=== PATIENT | female | born 1965 | race Caucasian/White ===

== ENCOUNTER 2016-09-24 17:34 | Emergency (ER) | payer SELFPAY ==
[2016-09-24 18:52] LABS: BASOPHILS 0.6 % (0-2); EOSINOPHILS 0.9 % (0-7); HEMATOCRIT 40.3 % (36.0-48.0); HEMOGLOBIN 13.8 g/dL (12-16); IMMATURE GRANULOCYTES 0.8 % (0-5); LYMPHOCYTES 31.1 % (15-50); MCH 30.4 pg (26.0-34.0); MCHC 34.2 g/dL (31.0-37.0); MCV 88.8 fL (80.0-100.0); MEAN PLATELET VOLUME 8.6 fL (7.4-10.4); MONOCYTES 7.5 % (2-11); NEUTROPHILS 59.1 % (40-80); PLATELET COUNT 245 10x3/uL (130-400); RBC 4.54 10x6/uL (4.00-5.40); RDW 12.2 % (11.5-14.5); WBC 10.2 10x3/uL (4.8-10.8)
[2016-09-24 19:10] LABS: ALBUMIN 3.6 g/dL (3.4-5.0); ALKALINE PHOSPHATASE 72 U/L (46-116); ALT (SGPT) 30 U/L (10-68); BILIRUBIN - TOTAL 0.22 mg/dL (0.2-1.3); CALC OSMOLALITY 283 mosm/kg (275-300); CALCIUM 8.8 mg/dL (8.5-10.1); CHLORIDE - SERUM 105 mmol/L (98-107); CREATININE - SERUM 0.8 mg/dL (0.6-1.3); GLUCOSE 89 mg/dL (74-106); POTASSIUM - SERUM 4.1 mmol/L (3.5-5.1); SODIUM 142 mmol/L (136-145); UREA NITROGEN 19 mg/dL (7-18); eGFR NON AFRICAN AMERICAN 81 mL/min (90-120)
[2016-09-24 19:17] LABS: CHOLESTEROL, TOTAL 235 mg/dL (0-200); CKMB 0.7 U/L (0.0-3.6); CREATINE KINASE 63 UL (21-215); HDL CHOLESTEROL 39 mg/dL (32-96); LDL CHOLESTEROL 135 mg/dL (0-100); LDL-HDL RATIO 3.5 ratio (1.5-3.5); TRIGLYCERIDE 307 mg/dL (30-200); TROPONIN-I < 0.017 ng/mL (0.000-0.060)
[2016-09-24 19:25] LABS: AMYLASE - SERUM 31 U/L (25-115); LIPASE 183 U/L (73-393)
[2016-09-24 21:51] LABS: APPEARANCE HAZY (CLEAR); BILIRUBIN NEGATIVE (NEGATIVE); COLOR YELLOW (YELLOW); GLUCOSE NEGATIVE (NEGATIVE); KETONE NEGATIVE (NEGATIVE); LEUKOCYTE ESTERASE NEGATIVE (NEGATIVE); NITRITE POSITIVE (NEGATIVE); PROTEIN NEGATIVE (NEGATIVE); SPECIFIC GRAVITY 1.015 (1.005-1.020); UROBILINOGEN NORMAL (NORMAL)
[2016-09-24 21:53] LABS: BACTERIA MANY /hpf (NONE SEEN); RED CELLS - URINE 0-5 /hpf (0-5); WHITE CELLS - URINE 0-5 /hpf (0-5)
== END 2016-09-24 22:40 | disposition home or self-care (01) ==
LOC: D.ER 17:34
PROVIDERS: Family Medicine
DX: N39.0 Urinary tract infection, site not specified (principal); I10 Essential (primary) hypertension; F32.9 Major depressive disorder, single episode, unspecified; J45.909 Unspecified asthma, uncomplicated; F17.200 Nicotine dependence, unspecified, uncomplicated

== ENCOUNTER 2017-01-12 10:15 | Emergency (ER) | payer MEDICARE ==
[2017-01-12 12:38] LABS: ALBUMIN 3.4 g/dL (3.4-5.0); ALKALINE PHOSPHATASE 79 U/L (46-116); ALT (SGPT) 47 U/L (10-68); BILIRUBIN - TOTAL 0.14 mg/dL (0.2-1.3); CALC OSMOLALITY 283 mosm/kg (275-300); CALCIUM 9.1 mg/dL (8.5-10.1); CARBON DIOXIDE 26.1 mmol/L (21.0-32.0); CHLORIDE - SERUM 106 mmol/L (98-107); CREATININE - SERUM 0.8 mg/dL (0.6-1.3); GLUCOSE 159 mg/dL (74-106); POTASSIUM - SERUM 4.6 mmol/L (3.5-5.1); PROTEIN - SERUM 6.9 g/dL (6.4-8.2); SODIUM 141 mmol/L (136-145); UREA NITROGEN 12 mg/dL (7-18); eGFR NON AFRICAN AMERICAN 81 mL/min (90-120)
[2017-01-12 12:41] LABS: BASOPHILS 0.3 % (0-2); CREATINE KINASE 130 UL (21-215); EOSINOPHILS 1.1 % (0-7); HEMATOCRIT 41.7 % (36.0-48.0); HEMOGLOBIN 14.1 g/dL (12-16); IMMATURE GRANULOCYTES 0.5 % (0-5); LYMPHOCYTES 17.6 % (15-50); MCH 30.4 pg (26.0-34.0); MCHC 33.8 g/dL (31.0-37.0); MCV 89.9 fL (80.0-100.0); MEAN PLATELET VOLUME 8.9 fL (7.4-10.4); MONOCYTES 3.4 % (2-11); NEUTROPHILS 77.1 % (40-80); PLATELET COUNT 244 10x3/uL (130-400); RBC 4.64 10x6/uL (4.00-5.40); RDW 12.5 % (11.5-14.5); WBC 6.5 10x3/uL (4.8-10.8)
[2017-01-12 12:42] LABS: TROPONIN-I < 0.017 ng/mL (0.000-0.060)
[2017-01-12 13:31] LABS: APPEARANCE HAZY (CLEAR); BILIRUBIN NEGATIVE (NEGATIVE); COLOR YELLOW (YELLOW); GLUCOSE NEGATIVE (NEGATIVE); KETONE NEGATIVE (NEGATIVE); NITRITE NEGATIVE (NEGATIVE); PROTEIN NEGATIVE (NEGATIVE); SPECIFIC GRAVITY 1.015 (1.005-1.020); UROBILINOGEN NORMAL (NORMAL)
== END 2017-01-12 15:15 | disposition home or self-care (01) ==
LOC: D.ER 10:15
PROVIDERS: Nurse Practitioner Family
DX: R20.2 Paresthesia of skin (principal); M48.02 Spinal stenosis, cervical region; I10 Essential (primary) hypertension

== ENCOUNTER 2017-10-21 17:28 | Observation (INO) | payer MEDICARE ==
[~2017-10-21] VITALS: Ht 165.1 cm; Wt 157.7 kg
[2017-10-21] MEDS ORDERED: LISINOPRIL-HCTZ1 T11 PO (17:32)
[2017-10-21] MEDS ORDERED: ZOCOR10 MG PO (17:33)
[2017-10-21] MEDS ORDERED: CELEXA40 MG PO (17:33)
[2017-10-21] MEDS ORDERED: NEURONTIN 300300 MG PO (17:33)
[2017-10-21] MEDS ORDERED: HYDROCODONE-APA1 TAB PO (17:33)
[2017-10-21] MEDS ORDERED: ADDERALL 30 MG30 MG PO (17:34)
[2017-10-21] MEDS ORDERED: IBUPROFEN800 MG PO (17:34)
[2017-10-21 18:45] VITALS: BP 111/58
[2017-10-21 19:53] VITALS: BP 108/76
[2017-10-21 21:21] LABS: BASOPHILS 0.2 % (0-2); EOSINOPHILS 0.1 % (0-7); HEMATOCRIT 39.2 % (36.0-48.0); HEMOGLOBIN 13.6 g/dL (12-16); IMMATURE GRANULOCYTES 0.4 % (0-5); LYMPHOCYTES 8.8 % (15-50); MCH 30.6 pg (26.0-34.0); MCHC 34.7 g/dL (31.0-37.0); MCV 88.3 fL (80.0-100.0); MEAN PLATELET VOLUME 8.9 fL (7.4-10.4); MONOCYTES 2.3 % (2-11); NEUTROPHILS 88.2 % (40-80); PLATELET COUNT 260 10x3/uL (130-400); RBC 4.44 10x6/uL (4.00-5.40); RDW 12.5 % (11.5-14.5); WBC 13.6 10x3/uL (4.8-10.8)
[2017-10-21 21:25] LABS: ALBUMIN 3.9 g/dL (3.4-5.0); ANION GAP 13.5 mmol/L (8-16); BILIRUBIN - TOTAL 0.41 mg/dL (0.2-1.3); CALCIUM 8.5 mg/dL (8.5-10.1); CARBON DIOXIDE 28.4 mmol/L (21.0-32.0); CREATININE - SERUM 1.1 mg/dL (0.6-1.3); POTASSIUM - SERUM 3.9 mmol/L (3.5-5.1); PROTEIN - SERUM 7.3 g/dL (6.4-8.2)
[2017-10-21] MEDS ORDERED: BENADRYL50 MG PO (21:32)
[2017-10-21 21:46] VITALS: BP 133/106; Ht 165.1 cm; Wt 157.7 kg
[2017-10-22 04:49] VITALS: BP 145/56
[2017-10-22] MEDS ORDERED: HYDROCODONE-APA1 TAB PO (08:00)
[2017-10-22 09:11] VITALS: BP 128/74
[2017-10-22 12:18] VITALS: BP 114/46
== END 2017-10-22 16:30 | disposition home or self-care (01) ==
LOC: D.ER 17:28 → D.MS 20:16 → OBSVTIME 20:17 → D.MS 10-22 16:30
PROVIDERS: Emergency Medicine
DX: S53.105A Unspecified dislocation of left ulnohumeral joint, initial encounter (principal); W01.0XXA Fall on same level from slipping, tripping and stumbling without subsequent striking against object, initial encounter; I10 Essential (primary) hypertension; E78.00 Pure hypercholesterolemia, unspecified; K58.9 Irritable bowel syndrome, unspecified; F17.210 Nicotine dependence, cigarettes, uncomplicated